=== PATIENT | female | born 1960 | race Two or more races ===

== ENCOUNTER 2018-06-14 14:47 | Emergency (ER) | payer MEDICAID ==
[~2018-06-14] VITALS: Ht 149.9 cm; Wt 82.0 kg
[2018-06-14 16:36] LABS: AMPHETAMINE SCREEN, URINE Negative (Negative); BARBITURATE SCREEN, URINE Negative (Negative); BENZODIAZEPINE SCREEN, URINE Negative (Negative); CANNABINOID SCREEN, URINE Negative (Negative); COCAINE SCREEN, URINE Negative (Negative); METHADONE SCREEN, URINE Negative (Negative); MICROSCOPIC INDICATED; OPIATE SCREEN, URINE Negative (Negative)
[2018-06-14 16:41] LABS: BASOPHILS # (AUTO) 0.05 x10^3/uL (0-0.1); BASOPHILS % (AUTO) 1 % (0-1); EOSINOPHILS # (AUTO) 0.04 x10^3/uL (0-0.4); EOSINOPHILS % (AUTO) 0 % (1-7); LYMPHOCYTES # (AUTO) 1.61 x10^3/uL (1-3.4); LYMPHOCYTES % (AUTO) 16 % (22-44); MD NO; MEAN CORPUSCULAR HEMOGLOBIN 29.1 pg (27.0-34.8); MEAN CORPUSCULAR HGB CONC 33.9 g/dL (32.4-35.8); MONOCYTES % (AUTO) 2 % (2-9); NEUTROPHILS # (AUTO) 8.43 x10^3/uL (1.8-6.8); NEUTROPHILS % (AUTO) 82 % (42-75); PLATELET COUNT 275 x10^3/uL (130-400); RED BLOOD COUNT 4.97 x10^6/uL (3.82-5.3); RED CELL DISTRIBUTION WIDTH 13.5 % (9.6-15.2)
[2018-06-14 16:49] LABS: ALBUMIN 3.4 g/dL (3.4-5.0); ANION GAP 8 mmol/L (5-15); CHLORIDE 109 mmol/L (98-107)
[2018-06-14 16:50] LABS: CULTURE INDICATED? NO
[2018-06-14 16:50] LABS: SALICYLATE LEVEL < 1.7 mg/dL (2.8-20.0)
[2018-06-14 16:58] VITALS: BP 133/82
[2018-06-14 16:59] LABS: ALANINE AMINOTRANSFERASE 26 U/L (12-78); ALKALINE PHOSPHATASE 100 U/L (45-117); BILIRUBIN,TOTAL 0.4 mg/dL (0.2-1.0); CREATININE 1.13 mg/dL (0.55-1.02); FREE T4 (FREE THYROXINE) 1.31 ng/dL (0.76-1.46); TOTAL PROTEIN 7.7 g/dL (6.4-8.2)
[2018-06-14 17:00] LABS: ACETAMINOPHEN < 2 mcg/mL (10-30)
== END 2018-06-14 19:35 ==
LOC: ED 16:46
DX: F33.3 Major depressive disorder, recurrent, severe with psychotic symptoms (principal); R41.82 Altered mental status, unspecified; I10 Essential (primary) hypertension
CPT/HCPCS: 36415; 80053; 80307; 80329; 81001; 84439; 84443; 85025; 99285; G0480

== ENCOUNTER 2021-03-11 21:34 | Emergency (ER) | payer MEDICAID ==
[~2021-03-11] VITALS: Ht 149.9 cm; Wt 75.0 kg
[2021-03-11] MEDS ORDERED: KETOROLAC 30 MG/1 ML ONE (21:59)
[2021-03-11] MEDS ORDERED: SODIUM CHLORIDE 0.9% 1,000ML IVBOLUS ONE (22:00)
[2021-03-11] MEDS ORDERED: KETOROLAC 30 MG/1 ML IVPush ONE (22:00)
--- NOTE | 2021-03-11 22:23 | NUR ---
bib ems from home for "being sick for 3 days" pt c/o n/v/d and dry cough
--- NOTE | 2021-03-11 23:18 | NUR ---
PT CALLING DAUGHTER FOR RIDE HOME
[2021-03-11 23:56] VITALS: BP 110/61
--- NOTE | 2021-03-11 23:57 | NUR ---
Patient/Caregiver given discharge instructions and they have confirmed that they understand the instructions. Patient ambulatory with steady gait. NAD, all questions answered appropriately, denies additional needs at this time. No personal belongings left in room after discharge.
== END 2021-03-11 23:58 | disposition home or self-care (01) ==
LOC: ED 22:29
DX: J06.9 Acute upper respiratory infection, unspecified (principal); I10 Essential (primary) hypertension; Z20.822 Contact with and (suspected) exposure to COVID-19
CPT/HCPCS: 96361; 96374; 99283; J1885; J7030